=== PATIENT | male | born 1995 ===

== ENCOUNTER 2021-07-11 14:14 | Emergency (ER) | payer SELFPAY ==
[2021-07-11 14:28] VITALS: BP 128/77
--- NOTE | 2021-07-11 15:21 | XRay Report ---
LEFT WRIST 3 VIEWS INDICATION: injury. COMPARISON: None. IMPRESSION: No acute osseous or soft tissue abnormality. No significant DJD. LEFT FOREARM 2 VIEWS INDICATION: injury. COMPARISON: None. IMPRESSION: A mildly comminuted fracture is identified through the proximal shaft of the radius with 1 cm displacement at the fracture site. The ulna is intact. There is anatomic alignment at the elbow and wrist. Diffuse soft tissue swelling. Signer Name: Ubaldo Cuevas Jr, MD Signed: 07/11/2021 3:17 PM Workstation Name: [id number]
--- NOTE | 2021-07-11 15:48 | Emergency Department Report ---
ED Upper Extremity Inj HPI - General Chief Complaint: Extremity Injury, Upper Stated Complaint: LT ARM INJURY Source: patient Mode of arrival: Ambulatory Limitations: Language Barrier - History of Present Illness Initial Comments: 26-year-old male presents to the ED after injuring his left arm. Patient states that he was holding a ladder when someone accidentally fell on his arm. Obvious swelling noted to the left arm particularly in the wrist area. Patient states painful to move to site. Patient states pain is a 10 out of 10. No ecchymosis noted. No distracting injury noted. Patient is alert and oriented x3. No acute distress noted. No Ill appearance noted. Denies any other pain or discomfort at present time. MD Complaint: Injury to:: left Onset/Timin -: hour(s) Other Extremity Injury: Fingers: Left, Arm: Left Severity scale (0 -10): 10 Improves With: none Worsens With: none Context: direct blow Associated Symptoms: denies other symptoms Treatments Prior to Arrival: cold therapy - Related Data Previous Rx's Medication Instructions Recorded Last Taken Type HYDROcodone/APAP 10-325 [[place] 1 each PO Q6HR PRN 5 Days #20 07/11/21 Unknown Rx 10/325] tablet Ibuprofen [Motrin] 800 mg PO Q8HR PRN 15 Days #30 07/11/21 Unknown Rx tablet Ondansetron [Zofran ODT TAB] 8 mg PO Q12HR 4 Days #12 tab 07/11/21 Unknown Rx Allergies Allergy/AdvReac Type Severity Reaction Status Date / Time No Known Allergies Allergy Verified 07/11/21 14:24 ED Review of Systems ROS: Stated complaint: LT ARM INJURY Other details as noted in HPI Constitutional: denies: chills, fever Eyes: denies: eye pain, eye discharge, vision change ENT: denies: ear pain, throat pain Respiratory: denies: cough, shortness of breath, wheezing Cardiovascular: denies: chest pain, palpitations Endocrine: no symptoms reported Gastrointestinal: denies: abdominal pain, nausea, diarrhea Genitourinary: denies: urgency, dysuria Musculoskeletal: joint swelling, other (left). denies: back pain, arthralgia Skin: denies: rash, lesions Neurological: denies: headache, weakness, paresthesias Psychiatric: denies: anxiety, depression Hematological/Lymphatic: denies: easy bleeding, easy bruising ED Past Medical Hx - Medications Home Medications: Home Medications Medication Instructions Recorded Confirmed Last Taken Type HYDROcodone/APAP 10-325 [[place] 1 each PO Q6HR PRN 5 Days #20 07/11/21 Unknown Rx 10/325] tablet Ibuprofen [Motrin] 800 mg PO Q8HR PRN 15 Days #30 07/11/21 Unknown Rx tablet Ondansetron [Zofran ODT TAB] 8 mg PO Q12HR 4 Days #12 tab 07/11/21 Unknown Rx ED Physical Exam - General Limitations: Language Barrier General appearance: alert, in no apparent distress - Head Head exam: Present: atraumatic, normocephalic - Eye Eye exam: Present: normal appearance - ENT ENT exam: Present: mucous membranes moist - Neck Neck exam: Present: normal inspection - Respiratory Respiratory exam: Present: normal lung sounds bilaterally. Absent: respiratory distress - Cardiovascular Cardiovascular Exam: Present: regular rate, normal rhythm. Absent: systolic murmur, diastolic murmur, rubs, gallop - GI/Abdominal GI/Abdominal exam: Present: soft, normal bowel sounds - Rectal Rectal exam: Present: deferred - Extremities Exam Extremities exam: Present: normal inspection - Back Exam Back exam: Present: normal inspection - Neurological Exam Neurological exam: Present: alert, oriented X3 - Psychiatric Psychiatric exam: Present: normal affect, normal mood - Skin Skin exam: Present: warm, dry, intact, normal color. Absent: rash ED Course Vital Signs 07/11/21 14:24 Temperature 99.2 F Pulse Rate 86 Respiratory 16 Rate Blood Pressure 128/77 [Left] O2 Sat by Pulse 97 Oximetry ED Medical Decision Making - Radiology Data [facility] [address] [place] [address] XRay Report Signed Patient: SERA BASILIO MR#: [id number] : 1995 Acct:[id number] Age/Sex: 25 / M ADM Date: 07/11/21 Loc: ED Attending Dr: Ordering Physician: LUIS FERRERA MD Date of Service: 07/11/21 Procedure(s): XR forearm LT Accession Number(s): [id number] cc: LUIS FERRERA MD Fluoro Time In Minutes: LEFT WRIST 3 VIEWS INDICATION: injury. COMPARISON: None. IMPRESSION: No acute osseous or soft tissue abnormality. No significant DJD. LEFT FOREARM 2 VIEWS INDICATION: injury. COMPARISON: None. IMPRESSION: A mildly comminuted fracture is identified through the proximal shaft of the radius with 1 cm displacement at the fracture site. The ulna is intact. There is anatomic alignment at the elbow and wrist. Diffuse soft tissue swelling. Signer Name: Ubaldo Cuevas Jr, MD Signed: 07/11/2021 3:17 PM Workstation Name: [id number] Transcribed By: TTR Dictated By: UBALDO CUEVAS JR, MD Electronically Authenticated By: UBALDO CUEVAS JR, MD Signed Date/Time: 07/11/211516 DD/ 15 TD/TT: - Medical Decision Making 36-year-old male presents to the ED with complaint that feeling dizzy while working today and anxious. Patient states that symptom has resolved. He states that symptoms occur when he goes to work. Patient states that he works from 4 AM to to 10. He said he states that during that time he did not eat. He states that he often becomes shaky and jittery at work. Patient states last with similar symptoms happened and he was treated at [facility]. Patient states he has a follow-up appointment at [facility] on June. Patient states that he drinks alcohol 3-4 times a week and often do not eat. Patient states that he was told at [facility] that he had hypertension and anxiety will be started on new medication at appointment. Patient is alert and oriented x3. No acute distress noted. No ill appearance noted. Denies any chest pain shortness of breath fever chills abdominal pain at present time. Critical care attestation.: If time is entered above; I have spent that time in minutes in the direct care of this critically ill patient, excluding procedure time. ED Disposition Clinical Impression: Left wrist fracture Qualifiers: Encounter type: initial encounter Fracture type: closed Qualified Code(s): S62.102A - Fracture of unspecified carpal bone, left wrist, initial encounter for closed fracture Disposition: HOME / SELF CARE / HOMELESS Is pt being admited?: No Does the pt Need Aspirin: No Condition: Stable Instructions: Wrist Splint, Adult, [id number] Additional Instructions: Take medication as prescribed Return to ED for worsening symptoms Prescriptions: Ibuprofen [Motrin] 800 mg PO Q8HR PRN 15 Days #30 tablet PRN Reason: Pain, Moderate (4-6) HYDROcodone/APAP 10-325 [[place] 10/325] 1 each PO Q6HR PRN 5 Days #20 tablet PRN Reason: Pain Ondansetron [Zofran ODT TAB] 8 mg PO Q12HR 4 Days #12 tab Referrals: PRIMARY CAREMD [Primary Care Provider] - 3-5 Days JESSICA MELO MD [Staff Physician] - 3-5 Days Forms: Work/School Release Form(ED)
== END 2021-07-11 16:18 | disposition home or self-care (01) ==
LOC: ED 14:14
DX: S62.102A Fracture of unspecified carpal bone, left wrist, initial encounter for closed fracture (principal); W19.XXXA Unspecified fall, initial encounter; Y93.89 Activity, other specified; Y92.89 Other specified places as the place of occurrence of the external cause; Y99.8 Other external cause status
CPT/HCPCS: 99283